=== PATIENT | male | born 1985 | race Caucasian/White ===

== ENCOUNTER 2016-03-31 19:45 | Emergency (ER) | payer SELFPAY ==
[2016-03-31] MEDS ORDERED: ONDANSETRON 4 MG/2 ML VIAL IVP STA (20:42)
--- NOTE | 2016-03-31 20:47 | ED ---
General Adult HPI - General Source: patient Mode of arrival: wheelchair Limitations: no limitations <Guevara Reyes - Last Filed: 03/31/16 20:43> <Thor Blanton - Last Filed: 03/31/16 22:18> - General Chief complaint: Abdominal Pain Stated complaint: Vomiting Time Seen by Provider: 03/31/16 20:30 - History of Present Illness Initial comments: 30-year-old male onset about 1:00 this afternoon of vomiting diarrhea unable keep anything down unable quit vomiting hot and cold but no fever other 2 members of family have similar symptoms. Is generally been in good health. ( Guevara Reyes) - Related Data Previous Rx's Medication Instructions Recorded Ondansetron Odt [Zofran Odt] 4 mg PO Q8HR PRN #10 tab 03/31/16 Allergies Allergy/AdvReac Type Severity Reaction Status Date / Time No Known Allergies Allergy Verified 03/31/16 20:12 Review of Systems ROS Other: All systems not noted in ROS Statement are negative. Constitutional: Denies: fever Eyes: Denies: eye pain ENT: Denies: ear pain, throat pain Respiratory: Denies: cough Cardiovascular: Denies: chest pain Endocrine: Reports: fatigue Gastrointestinal: Reports: nausea, vomiting, diarrhea. Denies: abdominal pain Genitourinary: Denies: urgency, dysuria, frequency Skin: Denies: rash Neurological: Denies: headache Hematological/Lymphatic: Denies: easy bleeding, easy bruising <Guevara Reyes - Last Filed: 03/31/16 20:43> ROS Other: All systems not noted in ROS Statement are negative. <Thor Blanton - Last Filed: 03/31/16 22:18> ROS Statement: Those systems with pertinent positive or pertinent negative responses have been documented in the HPI. Past Medical History Past Medical History: No Reported History History of Any Multi-Drug Resistant Organisms: MRSA Date of last positivie culture/infection: 06/21/15 MDRO Source:: RIGHT BREAST Past Surgical History: No Surgical Hx Reported Past Psychological History: No Psychological Hx Reported Smoking Status: Never smoker Past Alcohol Use History: None Reported Past Drug Use History: Marijuana <Guevara Reyes - Last Filed: 03/31/16 20:43> General Exam Limitations: no limitations General appearance: alert Head exam: Present: atraumatic Eye exam: Present: PERRL, EOMI ENT exam: Present: normal oropharynx, mucous membranes dry, other (Eyes sunken) Respiratory exam: Present: normal lung sounds bilaterally Cardiovascular Exam: Present: regular rate, normal heart sounds GI/Abdominal exam: Present: soft. Absent: tenderness Neurological exam: Present: alert, CN II-XII intact Psychiatric exam: Present: normal affect, normal mood Skin exam: Present: warm, dry <Guevara Reyes - Last Filed: 03/31/16 20:43> Medical Decision Making <Guevara Reyes - Last Filed: 03/31/16 20:43> - Lab Data Result diagrams: 03/31/16 20:55 03/31/16 20:55 <Thor Blanton - Last Filed: 03/31/16 22:18> - Medical Decision Making Patient reexamined by myself, Dr. Blanton. Patient resting comfortably in bed and does request discharge. Abdomen is soft and nontender. Patient is updated regarding results as well as elevated white blood cell count. Patient is advised to return for fevers or abdominal pain. Patient requests Tylenol for a long-standing toothache. Patient does plan to follow-up with a dentist for this. (Thor Blanton) - Lab Data Lab Results 03/31/16 03/31/16 Range/Units 20:55 20:55 WBC 23.1 H (3.8-10.6) k/uL RBC 6.21 H (4.30-5.90) m/uL Hgb 18.5 H (13.0-17.5) gm/dL Hct 54.8 H (39.0-53.0) % MCV 88.2 (80.0-100.0) fL MCH 29.8 (25.0-35.0) pg MCHC 33.8 (31.0-37.0) g/dL RDW 12.7 (11.5-15.5) % Plt Count 287 (150-450) k/uL Neutrophils % 93 % Lymphocytes % 1 % Monocytes % 4 % Eosinophils % 1 % Basophils % 0 % Neutrophils # 21.5 H (1.3-7.7) k/uL Lymphocytes # 0.3 L (1.0-4.8) k/uL Monocytes # 1.0 (0-1.0) k/uL Eosinophils # 0.2 (0-0.7) k/uL Basophils # 0.0 (0-0.2) k/uL Sodium 146 H (137-145) mmol/L Potassium 5.0 (3.5-5.1) mmol/L Chloride 105 (98-107) mmol/L Carbon Dioxide 24 (22-30) mmol/L Anion Gap 17 mmol/L BUN 16 (9-20) mg/dL Creatinine 0.90 (0.66-1.25) mg/dL Est GFR (MDRD) Af Amer >60 (>60 ml/min/1.73 sqM) Est GFR (MDRD) Non-Af >60 (>60 ml/min/1.73 sqM) Glucose 125 H (74-99) mg/dL Calcium 10.5 H (8.4-10.2) mg/dL Total Bilirubin 1.0 (0.2-1.3) mg/dL AST 23 (17-59) U/L ALT 30 (21-72) U/L Alkaline Phosphatase 72 (38-126) U/L Total Protein 8.5 H (6.3-8.2) g/dL Albumin 5.4 H (3.5-5.0) g/dL Disposition <Guevara Reyes - Last Filed: 03/31/16 20:43> <Thor Blanton - Last Filed: 03/31/16 22:18> Clinical Impression: Vomiting, Diarrhea Disposition: HOME SELF-CARE Instructions: Acute Nausea and Vomiting (ED), Acute Diarrhea (ED) Additional Instructions: Please follow-up with primary care physician tomorrow. Return for not tolerating fluids, abdominal pain, fevers, worsening symptoms or concerns. Please also follow-up with a dentist. Prescriptions: Ondansetron Odt [Zofran Odt] 4 mg PO Q8HR PRN #10 tab PRN Reason: Nausea Referrals: None,Stated [Primary Care Provider] - 1-2 days Akash Green MD [STAFF PHYSICIAN] - 1-2 days
[2016-03-31] MEDS: SODIUM CHLORIDE 0.9% 1,000 ML IV STA ×2 (20:54→21:47)
[2016-03-31 21:21] LABS: Basophils % (A) 0 %; CH 29.6; CHCM 33.7; Eosinophils # (A) 0.2 k/uL (0-0.7); Eosinophils % (A) 1 %; HCT 54.8 % (39.0-53.0); HDW 2.46; HGB 18.5 gm/dL (13.0-17.5); Luc # (Auto) 0.05; Luc % (Auto) 0; Lymphocytes # (A) 0.3 k/uL (1.0-4.8); Lymphocytes % (A) 1 %; MCH 29.8 pg (25.0-35.0); MCHC 33.8 g/dL (31.0-37.0); MCV 88.2 fL (80.0-100.0); Mean Platelet Volume 6.6; Monocytes % (A) 4 %; Neutrophils # (A) 21.5 k/uL (1.3-7.7); Neutrophils % (A) 93 %; RBC 6.21 m/uL (4.30-5.90); RDW 12.7 % (11.5-15.5); WBC 23.1 k/uL (3.8-10.6); WBC (Perox) 25.36
[2016-03-31 21:37] LABS: ALT 30 U/L (21-72); AST 23 U/L (17-59); Alkaline Phosphatase 72 U/L (38-126); Anion Gap 17 mmol/L; Blood Urea Nitrogen 16 mg/dL (9-20); Calcium 10.5 mg/dL (8.4-10.2); Carbon Dioxide 24 mmol/L (22-30); Chloride 105 mmol/L (98-107); Glucose 125 mg/dL (74-99); Non-African American GFR(MDRD) >60 (>60 ml/min/1.73 sqM); Sodium 146 mmol/L (137-145); Total Protein 8.5 g/dL (6.3-8.2)
[2016-03-31] MEDS ORDERED: ACETAMINOPHEN TAB 500 MG TAB PO STA (22:15)
[2016-03-31 22:22] VITALS: BP 110/55; PULSE 92; RESP 20; TEMP 99.2
== END 2016-03-31 22:30 | disposition home or self-care (01) ==
LOC: EC 19:45
DX: R11.10 Vomiting, unspecified (principal); R19.7 Diarrhea, unspecified
CPT/HCPCS: 36415; 80053; 85025; 99284; 96374; 96361; J2405